=== PATIENT | female | born 1945 | race Two or more races ===

== ENCOUNTER 2022-04-06 04:48 | Emergency (ER) | payer OTHER ==
[~2022-04-06] VITALS: Ht 154.9 cm; Wt 54.5 kg
[2022-04-06 05:25] LABS: Basophils # (auto) 0 10 ^3/uL (0-0.2); Basophils % (auto) 0.7 % (0.0-2.0); Eosinophils # (auto) 0.1 10 ^3/uL (0-0.8); Eosinophils % (auto) 1.8 % (0.0-7.0); Hematocrit 38.9 % (36.0-46.0); Hemoglobin 13.2 g/dL (12.2-16.2); Lymphocytes # (auto) 1.9 10 ^3/uL (0.4-5.4); Mean Corpuscular Hemoglobin 29.6 pg (28.0-32.0); Mean Corpuscular Hgb Conc. 33.9 g/dL (32.0-36.0); Mean Corpuscular Volume 87.4 fL (80.0-100.0); Monocytes # (auto) 0.3 10 ^3/uL (0-1.3); Monocytes % (auto) 5.7 % (0.0-12.0); Neutrophils # (auto) 3.3 10 ^3/uL (1.6-8.6); Neutrophils % (auto) 57.8 % (37.0-80.0); Nucleated Red Blood Cells % 0.1 %; Red Blood Cells 4.45 10^6/uL (4.0-5.20); Red Cell Distribution Width 14.4 % (11.8-14.3); White Blood Cell 5.7 10^3/uL (4.4-10.8)
[2022-04-06 05:46] LABS: Albumin 3.8 g/dL (3.4-5.0); BUN/Creatinine Ratio 12.1; Potassium 4.1 mmol/L (3.5-5.1)
[2022-04-06 05:48] LABS: Bilirubin, Total 0.5 mg/dL (0.2-1.0); Total Protein 7.4 g/dL (6.4-8.2)
[2022-04-06] MEDS ORDERED: ASPirin 325 MG TAB PO ONE (07:00)
[2022-04-06] MEDS ORDERED: cloNIDine HCL 0.1 MG TAB PO ONE (07:15)
[2022-04-06 12:00] VITALS: BP 112/55
[2022-04-06] MEDS ORDERED: ACETAMINOPHEN 325 MG TAB PO PRN (13:00)
[2022-04-06] MEDS ORDERED: NITROGLYCERIN 0.4 MG SL TAB SL PRN (13:00)
[2022-04-06] MEDS ORDERED: MORPHINE SULFATE INJ 2 MG/ml SYRG IV PRN ×2 (13:00)
[2022-04-06] MEDS ORDERED: HYDROcodone-ACET 5/325MG TAB PO PRN (13:00)
[2022-04-06] MEDS ORDERED: ONDANSETRON HCL 4 MG/2 ML VIAL IV PRN (13:00)
[2022-04-07] MEDS ORDERED: ENOXAPARIN SOD 40 MG/0.4 ML SYRINGE SC SCH (10:00)
== END 2022-04-06 13:04 | disposition home or self-care (01) ==
LOC: ER 04:48 → UNDOADMOB 12:55 → TELE 12:55 → ER 13:04
DX: I24.9 Acute ischemic heart disease, unspecified (principal); I10 Essential (primary) hypertension; Z90.710 Acquired absence of both cervix and uterus; Z20.822 Contact with and (suspected) exposure to COVID-19
CPT/HCPCS: 36415; 71045; 80053; 83880; 84484; 85025; 85379; 87426; 93005